=== PATIENT | male | born 1985 | race Caucasian/White ===

== ENCOUNTER 2018-12-16 10:11 | Emergency (ER) | payer BC ==
[2018-12-16 10:34] VITALS: BP 125/77; PULSE 65; RESP 18; TEMP 97.6
--- NOTE | 2018-12-16 11:04 | ED ---
General Adult HPI - General Chief complaint: Wound/Laceration Stated complaint: Wound opening up Time Seen by Provider: 12/16/18 10:42 Source: patient Mode of arrival: ambulatory Limitations: no limitations - History of Present Illness Initial comments: Patient is a 33-year-old male presenting for ulcer of the skin. The patient states that about a month ago, he had a biopsy as well as small tumor removed from the right side of his chest. At that time, he was diagnosed as having had MRSA and started on antibiotics. Sutures were subsequently removed. He decided to come in because last night, he started having some small serous saline as drainage from the wound. He denies any fevers or chills or pain in that area. He wanted to make sure that it was not getting infected again. - Related Data Previous Rx's Medication Instructions Recorded Sulfamethox-Tmp 800-160Mg [Bactrim 1 tab PO Q12HR 7 Days #14 tab 12/16/18 DS 800-160 mg] Allergies Allergy/AdvReac Type Severity Reaction Status Date / Time No Known Allergies Allergy Verified 12/16/18 10:34 Review of Systems ROS Statement: Those systems with pertinent positive or pertinent negative responses have been documented in the HPI. Constitutional: Negative for chills, fatigue and fever. HENT: Negative for congestion. Respiratory: Negative for chest tightness, shortness of breath and wheezing. Negative for cough Cardiovascular: Negative for chest pain and palpitations. Gastrointestinal: Negative for abdominal pain. Negative for abdominal distention, diarrhea, nausea and vomiting. Genitourinary: Negative for dysuria. Musculoskeletal: Negative for back pain, neck pain and neck stiffness. Skin: Positive for color change and wound. Neurological: Negative for dizziness, speech difficulty, weakness and light- headedness. Psychiatric/Behavioral: Negative for agitation and confusion. Negative for anxiety ROS Other: All systems not noted in ROS Statement are negative. Past Medical History Past Medical History: Cancer Additional Past Medical History / Comment(s): skin cancer, benign tumors History of Any Multi-Drug Resistant Organisms: MRSA Date of last positivie culture/infection: 11/2018 Past Surgical History: Tonsillectomy Additional Past Surgical History / Comment(s): Skin Cancer removal, cyst removal from tail bone Past Psychological History: No Psychological Hx Reported Smoking Status: Never smoker Past Alcohol Use History: Rare Past Drug Use History: None Reported General Exam - General Exam Comments Initial Comments: Constitutional: Pt appears well-developed and well-nourished. No distress. Head: Normocephalic and atraumatic. Eyes: EOM are normal. Neck: Normal range of motion. Neck supple. Cardiovascular: Normal rate, regular rhythm, S1 normal, S2 normal and normal heart sounds. Exam reveals no gallop and no friction rub. No murmur heard. Pulmonary/Chest: Effort normal and breath sounds normal. No tachypnea and no bradypnea. No respiratory distress. No wheezes or rales noted. Abdominal: Soft. Bowel sounds are normal. Pt exhibits no shifting dullness, no distension, no pulsatile liver, no fluid wave, no abdominal bruit and no ascites. There is no rigidity, no rebound, no guarding, no tenderness at McBurney's point and negative Magana's sign. There is no tenderness. Musculoskeletal: Normal range of motion. Neurological: Pt is alert and oriented to person, place, and time. No cranial nerve deficit. Skin: Skin is warm and dry. No rash noted. Pt is not diaphoretic. There is small 3 mm ovoid ulceration in the skin folds with small opening. There is no surrounding erythema or obvious source of cellulitis or infection. Wound is located on the right side of his chest approximately along ribs 8 through 12 Psychiatric: Pt has a normal mood and affect. Pt behavior is normal. Thought content normal. Limitations: no limitations Course Vital Signs 12/16/18 10:29 Temperature 97.6 F Pulse Rate 65 Respiratory 18 Rate Blood Pressure 125/77 O2 Sat by Pulse 98 Oximetry Medical Decision Making - Medical Decision Making There is no overt signs of sepsis or obvious cellulitis or abscess formation. There is no tenderness to palpation of the wound and therefore it was thought t hat it would be appropriate to send the patient home on Bactrim as he does have a history of MRSA. Patient was advised to follow up with PCP in next 1-2 days for further evaluation and/or return if the symptoms worsen. Patient was agreeable to plan and noted to be resting in bed complaining in no acute distress at the time of disposition. Disposition Clinical Impression: Skin ulceration Disposition: HOME SELF-CARE Condition: Good Instructions (If sedation given, give patient instructions): How to Prevent Pressure Injuries (ED) Prescriptions: Sulfamethox-Tmp 800-160Mg [Bactrim DS 800-160 mg] 1 tab PO Q12HR 7 Days #14 tab Is patient prescribed a controlled substance at d/c from ED?: No Referrals: Karl Rizzo MD [Primary Care Provider] - 1-2 days Time of Disposition: 11:03
== END 2018-12-16 11:10 | disposition home or self-care (01) ==
LOC: EC 10:11
DX: L98.499 Non-pressure chronic ulcer of skin of other sites with unspecified severity (principal); Z86.14 Personal history of Methicillin resistant Staphylococcus aureus infection; Z85.828 Personal history of other malignant neoplasm of skin
CPT/HCPCS: 99283